=== PATIENT | female | born 1965 | race Caucasian/White ===

== ENCOUNTER 2023-12-30 10:24 | Emergency (ER) | payer OTHER ==
[~2023-12-30] VITALS: Ht 152.4 cm; Wt 66.2 kg
[2023-12-30 10:26] VITALS: BP_SYST 160; PULSE 105; RESP 18; TEMP 98.3; O2SAT 98
[2023-12-30] MEDS ORDERED: IBUP-1969 PO (12:37)
[2023-12-30 12:53] VITALS: BP_SYST 165; PULSE 91; RESP 16; TEMP 98.2; O2SAT 97
== END 2023-12-30 12:51 | disposition home or self-care (01) ==
LOC: SED 10:24
DX: S20.20XA Contusion of thorax, unspecified, initial encounter (principal); R09.89 Other specified symptoms and signs involving the circulatory and respiratory systems; M54.9 Dorsalgia, unspecified; X58.XXXA Exposure to other specified factors, initial encounter; Y93.89 Activity, other specified; Y92.89 Other specified places as the place of occurrence of the external cause; Y99.8 Other external cause status
CPT/HCPCS: 71045; 71110; 93005; 99284